=== PATIENT | male | born 1980 | race Caucasian/White ===

== ENCOUNTER 2024-05-04 19:00 | Emergency (ER) | payer SELFPAY ==
[2024-05-04 19:02] VITALS: BP 166/91
[2024-05-04] MEDS: ADACEL 0.5 ML IM (19:19)
--- NOTE | 2024-05-04 19:19 | ED.GENMED ---
History of Present Illness
General
Chief Complaint: Skin Problem
Source: patient
Time Seen by Provider: 05/04/24 19:06
History of Present Illness
History of Present Illness:
44-year-old male presenting to the ER for evaluation after he was transporting a crisis patient to the emergency department and was scratched by either her finger or a ring that was on her hand. Patient unsure of last tetanus. No other injuries
were sustained.
Past History
Past History
ED Past Medical History: HTN, Other (Migraine headaches ) and Other (Lyme's disease, RA on biologics)
ED Past Surgical History: None
Patient has exhibited threatening behavior?: No
PSI?: No
Social History
Tobacco: Non-smoker
Alcohol: Occasional
Drug: None
Personal:
Living: with family
Employment: Employed
Review of Systems
Review of Systems
All Other Systems: ROS reviewed and negative except as documented in HPI and ROS
Phy Exam
Physical Exam
Physical Exam:
GENERAL: Alert , in no apparent distress
EYE: conjunctiva clear
Head: Normocephalic atraumatic
NECK: Supple,
ENT: mmm.
LUNGS: no acute respiratory distress
NEUROLOGICAL: Alert and oriented
SKIN: Warm and dry, 2 separate superficial abrasions over the mid forehead and one closer to the nasal bridge with no active bleeding. More proximal abrasion is linear and measures approximately 1 cm in length. More distal laceration is measuring
less than 5 mm
MUSCULOSKELETAL: well perfused.
PSYCH: Normal and appropriate interaction.
Scores
Heart Failure Risk
Heart Failure Risk Score: Not Applicable
Heart Score for Chest Pain Patients
STEMI patient?: Not applicable
Withdrawal Assessment of Alcohol
Withdrawal Assessment Completed?: Not applicable
Course
Orders/Labs/Results
Orders:
Orders
05/04/24 19:14
Tetanus/Diphth/Acelpertussis [Adacel] 0.5 ml IM .ONCE ONE
Vital Signs
Initial and Last Documented VS:
Initial Vital Signs
Temp Pulse Resp BP Pulse Ox
98.1 F 101 18 166/91 99
05/04/24 19:02 05/04/24 19:02 05/04/24 19:02 05/04/24 19:02 05/04/24 19:02
Last Documented Vital Signs
Temp Pulse Resp BP Pulse Ox
98.1 F 101 18 166/91 99
05/04/24 19:02 05/04/24 19:02 05/04/24 19:02 05/04/24 19:02 05/04/24 19:02
Procedures
Laceration Closure
Proximal Forehead:
Status of Wound: clean
Size of Wound in cm: 1
Description of Wound Edges: surrounded by abrasion
Preparation: cleaned with saline
Type of Closure: Dermabond-skin glue
MDM/Problems Addressed
MDM/Problems Addressed:
44-year-old male presenting the ER for evaluation after he was scratched by a crisis patient that he was transporting to the emergency. Dermabond glue was placed over the proximalmost portion of superficial abrasion. Tetanus vaccine was updated.
Patient advised on wound care. Stable for discharge home otherwise
*Pulse Oximetry
Patient hypoxic: no
*Critical Care Note
Total Time (30-74mins, 75-104mins- exclusive of procedures): Not Applicable
ED Attending Note
-
Portions of this chart may have been created with voice recognition software.� Occasional wrong word or��sound alike� substitutions may have occurred due to the inherent limitations of voice recognition software.
Discharge Plan
Departure
Patient Disposition: Home (Routine Discharge)
Date of Disposition: 05/04/24
Time of Disposition: 19:19
Patient with high blood pressure during this ER visit?: Yes
Discharge Problem:
Abrasion of forehead
Instructions: Wound Care (DC)
Prescriptions:
No Action
prednisone 5 mg tablet
15 mg PO DAILY
leflunomide 20 mg tablet
20 mg PO DAILY
loperamide 2 mg tablet
4 mg PO Q4H PRN (Reason: loose stool) Qty: 30 0RF
doxycycline monohydrate 100 mg capsule
100 mg PO BID Qty: 20 0RF
clindamycin HCl 300 mg capsule
300 mg PO TID Qty: 30 0RF
mupirocin 2 % ointment
1 applic topical TID Qty: 15 0RF
Interventions
Interventions:
*Risk Screen - Suicide Last Done: 05/04/24 19:02
*General Assessment Last Done: 05/04/24 19:02
*Neglect/Abuse Screening Last Done: 05/04/24 19:02
ED- Fall Risk Assessment Last Done: 05/04/24 19:32
*ED COVID-19 Vaccine History Last Done: 05/04/24 19:02
*Nursing Disposition Last Done: 05/04/24 19:32
ED-Skin Assessment Last Done: 05/04/24 19:24
Discharge Date and Time
Discharge Date/Time: 05/04/24 19:33
Print Language: [id number]
== END 2024-05-04 19:33 | disposition home or self-care (01) ==
LOC: EMR 19:00
PROVIDERS: EMERGENCY PHYSICIAN Emergency Medicine; FAMILY PHYSICIAN Family Medicine
DX: S00.81XA Abrasion of other part of head, initial encounter (principal); W50.4XXA Accidental scratch by another person, initial encounter; Y93.89 Activity, other specified; Y92.89 Other specified places as the place of occurrence of the external cause; Y99.0 Civilian activity done for income or pay; Z23 Encounter for immunization; I10 Essential (primary) hypertension; G43.909 Migraine, unspecified, not intractable, without status migrainosus; M06.9 Rheumatoid arthritis, unspecified
CPT/HCPCS: 99282; 12011; 90471; 90715

== ENCOUNTER → 2024-05-26 09:23 | Outpatient (REF) | payer OTHER, SELFPAY | LOC: RCS 09:23 | PROVIDERS: ATTENDING PHYSICIAN Internal Medicine; FAMILY PHYSICIAN Family Medicine | DX: R00.0 Tachycardia, unspecified (principal); I10 Essential (primary) hypertension; E78.2 Mixed hyperlipidemia; E66.3 Overweight | CPT/HCPCS: 93225; 93226 ==

== ENCOUNTER → 2024-06-03 08:32 | Outpatient (REF) | payer OTHER, SELFPAY ==
[2024-06-03 10:16] LABS: % Basophils 0.6 % (0-2); % Eosinophils 4.6 % (0-6); % Immature Granulocytes 0.3 % (0-0.5); % Lymphocytes 34.9 % (20.5-51.1); % Neutrophils 48.6 % (42.2-75.2); Absolute Basophils 0.1 10^3/uL (0-0.2); Absolute Eosinophils 0.4 10^3/uL (0-0.7); Absolute Lymphocytes 2.8 10^3/uL (1.2-3.4); Absolute Monocytes 0.9 10^3/uL (0.1-0.6); Absolute Neutrophils 3.9 10^3/uL (1.4-6.5); Hematocrit 39.6 % (39.0-52.0); Hemoglobin 13.8 g/dL (13.0-18.0); Mean Corp Hgb Conc. 34.8 g/dL (33.0-37.0); Mean Corpuscular Hgb 31.2 pg (27.0-31.0); Mean Corpuscular Volume 89.4 fL (80.0-94.0); Mean Platelet Volume 9.7 fL (7.4-10.4); Nucleated Red Blood Cells % 0 % (-); Platelet Count 267 10^3/uL (130-400); Red Blood Cell Count 4.43 10^6/uL (4.70-6.10); Red Cell Dist. Width 12.3 % (11.5-14.5)
[2024-06-03 10:20] LABS: Erythrocyte Sed Rate 15 mm/hour (0-20)
[2024-06-03 10:27] LABS: ALT (SGPT) 31 U/L (0-50); AST (SGOT) 29 U/L (17-59); Albumin 4.3 g/dl (3.5-5.0); Alkaline Phosphatase 55 U/L (38-126); Blood Urea Nitrogen 20 mg/dl (9-20); Calcium 9.1 mg/dl (8.4-10.2); Carbon Dioxide 26 mmol/L (22-30); Chloride 106 mmol/L (98-107); Glucose 88 mg/dl (70-99); HDL Cholesterol 33 mg/dl; LDL Cholesterol, Calculated 147 mg/dl; Potassium 4.5 mmol/L (3.5-5.1); Sodium 139 mmol/L (135-145); Total Bilirubin 0.6 mg/dl (0.2-1.3); Total Cholesterol 212 mg/dl (50-199); Total Protein 7.2 g/dl (6.3-8.2); Triglyceride 162 mg/dl (10-149); Very Low Density Lipoprotein 32 mg/dl (0-30); eGFR > 60.00
[2024-06-03 10:29] LABS: C-Reactive Protein < 5.00 mg/L (0.0-10.00)
== END ==
LOC: HWLAB 08:32
PROVIDERS: ATTENDING PHYSICIAN Internal Medicine; FAMILY PHYSICIAN Family Medicine; REFERRING PHYSICIAN Internal Medicine Rheumatology
DX: E78.2 Mixed hyperlipidemia (principal); L40.9 Psoriasis, unspecified; M05.761 Rheumatoid arthritis with rheumatoid factor of right knee without organ or systems involvement
CPT/HCPCS: 36415; 80053; 80061; 85025; 85652; 86140

== ENCOUNTER → 2024-10-12 07:46 | Outpatient (REF) | payer OTHER, SELFPAY ==
[2024-10-12 09:54] LABS: ALT (SGPT) 31 U/L (0-50); AST (SGOT) 29 U/L (17-59); Albumin 4.2 g/dl (3.5-5.0); Alkaline Phosphatase 38 U/L (38-126); Blood Urea Nitrogen 25 mg/dl (9-20); C-Reactive Protein < 5.00 mg/L (0.0-10.00); Calcium 9.2 mg/dl (8.4-10.2); Carbon Dioxide 27 mmol/L (22-30); Chloride 104 mmol/L (98-107); Glucose 95 mg/dl (70-99); HDL Cholesterol 37 mg/dl; LDL Cholesterol, Calculated 104 mg/dl; Potassium 4.4 mmol/L (3.5-5.1); Sodium 139 mmol/L (135-145); Total Bilirubin 0.5 mg/dl (0.2-1.3); Total Cholesterol 162 mg/dl (50-199); Total Protein 7.1 g/dl (6.3-8.2); Triglyceride 107 mg/dl (10-149); Very Low Density Lipoprotein 21 mg/dl (0-30); eGFR > 60.00
[2024-10-12 10:04] LABS: % Basophils 0.7 % (0-2); % Immature Granulocytes 0.2 % (0-0.5); % Monocytes 12.6 % (1.7-9.3); % Neutrophils 48.5 % (42.2-75.2); Absolute Basophils 0.1 10^3/uL (0-0.2); Absolute Eosinophils 0.4 10^3/uL (0-0.7); Absolute Monocytes 1.1 10^3/uL (0.1-0.6); Absolute Neutrophils 4.3 10^3/uL (1.4-6.5); Hematocrit 40.2 % (39.0-52.0); Hemoglobin 13.9 g/dL (13.0-18.0); Mean Corp Hgb Conc. 34.6 g/dL (33.0-37.0); Mean Corpuscular Hgb 32.3 pg (27.0-31.0); Mean Corpuscular Volume 93.5 fL (80.0-94.0); Mean Platelet Volume 9.9 fL (7.4-10.4); Nucleated Red Blood Cells % 0 % (-); Platelet Count 263 10^3/uL (130-400); Red Cell Dist. Width 12.5 % (11.5-14.5); White Blood Cell Count 8.8 10^3/uL (4.8-10.8)
[2024-10-12 10:18] LABS: Erythrocyte Sed Rate 14 mm/hour (0-20)
== END ==
LOC: HWLAB 07:46
PROVIDERS: ATTENDING PHYSICIAN Internal Medicine Rheumatology; FAMILY PHYSICIAN Family Medicine
DX: L40.9 Psoriasis, unspecified (principal); M05.761 Rheumatoid arthritis with rheumatoid factor of right knee without organ or systems involvement; Z82.49 Family history of ischemic heart disease and other diseases of the circulatory system
CPT/HCPCS: 36415; 80053; 80061; 85025; 85652; 86140

== ENCOUNTER → 2025-01-04 09:09 | Outpatient (REF) | payer OTHER, SELFPAY | LOC: HWRAD 09:09 | PROVIDERS: ATTENDING PHYSICIAN Internal Medicine Rheumatology; FAMILY PHYSICIAN Family Medicine | DX: M05.761 Rheumatoid arthritis with rheumatoid factor of right knee without organ or systems involvement (principal); M25.511 Pain in right shoulder | CPT/HCPCS: 73030 ==